=== PATIENT | female | born 1985 | race Asian ===

== ENCOUNTER 2016-05-31 03:50 | Emergency (ER) | payer MEDICAID, OTHER ==
[~2016-05-31] VITALS: Ht 154.9 cm; Wt 82.0 kg
[~2016-05-31 03:50] MED LIST: METF500T4 PO; ZIPR40CA2 PO
[2016-05-31 04:06] LABS: GLUCOSE,POINT OF CARE 159 MG/DL (70-110)
[2016-05-31 04:28] LABS: BASOPHILS % (AUTO) 0.2 % (0.0-2.0); EOSINOPHILS % (AUTO) 2.1 % (1.0-6.0); HEMATOCRIT 38.6 % (36-46); HEMOGLOBIN 12.5 g/dL (12.0-16.0); LYMPHOCYTES # (AUTO) 1.8 K/uL (1.0-4.8); LYMPHOCYTES % (AUTO) 14.7 % (22.0-44.0); MEAN CORPUSCULAR HEMOGLOBIN 30.1 pg (26.0-34.0); MEAN CORPUSCULAR HGB CONC 32.4 G/dL (31.0-37.0); MEAN CORPUSCULAR VOLUME 93 fL (80-100); MONOCYTES # (AUTO) 0.9 K/uL (0.1-1.0); MONOCYTES % (AUTO) 7.4 % (2.0-9.0); NEUTROPHILS # (AUTO) 9.5 K/uL (1.8-7.7); NEUTROPHILS % (AUTO) 75.6 % (40.0-70.0); PLATELET COUNT (AUTO) 372 K/uL (150-450); RED BLOOD CELL COUNT(AUTO) 4.15 MIL/uL (4.00-5.20); WHITE BLOOD COUNT (AUTO) 12.6 K/uL (4.5-11.0)
[2016-05-31 04:42] LABS: ALANINE AMINOTRANSFERASE 51 U/L (12-78); ALBUMIN 4.2 g/dL (3.4-5.0); ANION GAP 12 mmol/L (8-16); ASPARTATE AMINOTRANSFERASE 28 U/L (15-37); BILIRUBIN,TOTAL 0.4 mg/dL (0.1-1.0); CALCIUM, TOTAL 9.1 mg/dL (8.8-10.5); CARBON DIOXIDE 24 mmol/L (22-29); CHLORIDE 100 mmol/L (98-107); CREATININE 0.86 mg/dL (0.60-1.30); GLOMERULAR FILTR. RATE CALC > 60 mL/min (>60); POTASSIUM 3.8 mmol/L (3.5-5.1); SODIUM SERUM 136 mmol/L (136-145); TOTAL PROTEIN, SERUM 8.1 g/dL (6.4-8.2)
[2016-05-31] MEDS ORDERED: HALOPERIDOL 5 MG TABLET PO ONE (04:45)
[2016-05-31] MEDS ORDERED: LORazepam 2 MG TABLET PO ONE (04:45)
[2016-05-31 04:54] LABS: UREA NITROGEN, BLOOD 9 mg/dL (7-18)
[2016-05-31 05:43] VITALS: BP 144/83
== END 2016-05-31 05:50 | disposition home or self-care (01) ==
LOC: EMS 03:50
DX: F25.9 Schizoaffective disorder, unspecified (principal); R45.851 Suicidal ideations; E11.9 Type 2 diabetes mellitus without complications; F17.210 Nicotine dependence, cigarettes, uncomplicated
CPT/HCPCS: 36415; 80053; 82962; 85025; 99285; 99406; G0480

== ENCOUNTER 2016-07-11 11:13 | Inpatient (IN) | payer MEDICAID, OTHER ==
[~2016-07-11] VITALS: Ht 154.9 cm; Wt 78.9 kg
[2016-07-11] MEDS ORDERED: QUET100T PO (11:22)
[2016-07-11] MEDS ORDERED: CHLO10 PO (11:22)
[2016-07-11 11:26] LABS: GLUCOSE,POINT OF CARE 127 MG/DL (70-110)
[2016-07-11 12:01] LABS: BASOPHILS # (AUTO) 0.04 K/uL (0.00-0.20); BASOPHILS % (AUTO) 0.4 % (0.0-2.0); EOSINOPHILS # (AUTO) 0.13 K/uL (0.00-0.70); HEMOGLOBIN 13.3 g/dL (12.0-16.0); LYMPHOCYTES # (AUTO) 2.5 K/uL (1.0-4.8); LYMPHOCYTES % (AUTO) 25.2 % (22.0-44.0); MEAN CORPUSCULAR HEMOGLOBIN 30.6 pg (26.0-34.0); MEAN CORPUSCULAR HGB CONC 33.2 G/dL (31.0-37.0); MEAN CORPUSCULAR VOLUME 92 fL (80-100); MONOCYTES % (AUTO) 9.6 % (2.0-9.0); NEUTROPHILS # (AUTO) 6.3 K/uL (1.8-7.7); NEUTROPHILS % (AUTO) 63.6 % (40.0-70.0); PLATELET COUNT (AUTO) 342 K/uL (150-450); RED BLOOD CELL COUNT(AUTO) 4.35 MIL/uL (4.00-5.20); RED CELL DISTRIBUTION WIDTH 12.8 % (11.5-14.5); WHITE BLOOD COUNT (AUTO) 9.9 K/uL (4.5-11.0)
[2016-07-11 12:12] LABS: ANION GAP 7 mmol/L (8-16); CALCIUM, TOTAL 8.9 mg/dL (8.8-10.5); CARBON DIOXIDE 27 mmol/L (22-29); CHLORIDE 103 mmol/L (98-107); CREATININE 0.75 mg/dL (0.60-1.30); GLOMERULAR FILTR. RATE CALC > 60 mL/min (>60); POTASSIUM 3.9 mmol/L (3.5-5.1); SODIUM SERUM 137 mmol/L (136-145); UREA NITROGEN, BLOOD 12 mg/dL (7-18)
[2016-07-11 12:17] LABS: ALANINE AMINOTRANSFERASE 36 U/L (12-78); ALBUMIN 3.9 g/dL (3.4-5.0); ASPARTATE AMINOTRANSFERASE 17 U/L (15-37); BILIRUBIN,TOTAL 0.2 mg/dL (0.1-1.0); TOTAL PROTEIN, SERUM 7.8 g/dL (6.4-8.2)
[2016-07-11 17:54] VITALS: BP 129/91
[2016-07-11 18:57] LABS: GLUCOSE,POINT OF CARE 141 MG/DL (70-110)
[2016-07-11] MEDS ORDERED: ACETAMINOPHEN 325 MG TABLET PO PRN (22:00)
[2016-07-12 01:01] VITALS: BP 63/61
[2016-07-12 01:05] VITALS: BP 124/63
[2016-07-12] MEDS: LORazepam 2 MG TABLET PO PRN ×2 (01:08→07:06)
[2016-07-12] MEDS ORDERED: INFLUENZA VIRUS VACCINE QVS 2016-17 (3YR+)/PF 60 MCG/0.5 ML SYRINGE IM ONE (03:15)
[2016-07-12] MEDS ORDERED: -PHARMACY VACCINE NOTE- MISC ONE ×2 (03:15)
[2016-07-12 05:57] LABS: GLUCOSE,POINT OF CARE 114 MG/DL (70-110)
[2016-07-12 08:00] VITALS: BP 134/71
[2016-07-12] MEDS: BACITRACIN 28.4 GM OINTMENT TP SCH ×2 (13:19→17:01)
[2016-07-12 16:09] VITALS: BP 108/63
[2016-07-12] MEDS: RisperiDONE 3 MG TABLET PO SCH (17:00)
[2016-07-12] MEDS: MetFORMIN HCL 500 MG TABLET PO SCH (17:00)
[2016-07-12] MEDS: DIVALPROEX SODIUM 500 MG DR TABLET PO SCH (17:00)
[2016-07-13 03:08] VITALS: BP 128/76
[2016-07-13] MEDS: HALOPERIDOL 5 MG TABLET PO PRN ×2 (03:10→09:15)
[2016-07-13] MEDS: LORazepam 2 MG TABLET PO PRN ×2 (03:10→09:14)
[2016-07-13] MEDS: MetFORMIN HCL 500 MG TABLET PO SCH ×2 (06:50→16:51)
[2016-07-13 06:54] LABS: GLUCOSE,POINT OF CARE 197 MG/DL (70-110)
[2016-07-13 08:17] VITALS: BP 132/84
[2016-07-13] MEDS: BACITRACIN 28.4 GM OINTMENT TP SCH ×2 (09:00→16:51)
[2016-07-13] MEDS: RisperiDONE 3 MG TABLET PO SCH ×2 (09:14→16:51)
[2016-07-13] MEDS: DIVALPROEX SODIUM 500 MG DR TABLET PO SCH ×2 (09:15→16:51)
[2016-07-13 14:12] LABS: GLUCOSE COMMENT 1 Post Meal; GLUCOSE,POINT OF CARE 223 MG/DL (70-110)
[2016-07-13 16:27] VITALS: BP 135/76
[2016-07-13 16:47] LABS: GLUCOSE,POINT OF CARE 180 MG/DL (70-110)
[2016-07-14 00:01] VITALS: BP 128/80
[2016-07-14] MEDS: ZOLPIDEM TARTRATE 10 MG TABLET PO PRN (00:02)
[2016-07-14 06:12] LABS: GLUCOSE,POINT OF CARE 134 MG/DL (70-110)
[2016-07-14] MEDS: MetFORMIN HCL 500 MG TABLET PO SCH ×2 (06:38→16:19)
[2016-07-14 08:13] VITALS: BP 126/76
[2016-07-14] MEDS: BACITRACIN 28.4 GM OINTMENT TP SCH ×2 (09:21→16:21)
[2016-07-14] MEDS: DIVALPROEX SODIUM 500 MG DR TABLET PO SCH ×2 (09:22→16:19)
[2016-07-14] MEDS: RisperiDONE 3 MG TABLET PO SCH ×2 (09:22→16:19)
[2016-07-14] MEDS: LORazepam 2 MG TABLET PO PRN ×2 (09:46→16:19)
[2016-07-14 11:17] LABS: GLUCOSE,POINT OF CARE 99 MG/DL (70-110)
[2016-07-14 16:04] VITALS: BP 142/87
[2016-07-14 16:57] LABS: GLUCOSE,POINT OF CARE 113 MG/DL (70-110)
[2016-07-14 20:57] LABS: GLUCOSE,POINT OF CARE 126 MG/DL (70-110)
[2016-07-15 04:27] VITALS: BP 135/85
[2016-07-15 05:52] LABS: GLUCOSE COMMENT 1 Doctor Notified; GLUCOSE,POINT OF CARE 197 MG/DL (70-110)
[2016-07-15] MEDS: MetFORMIN HCL 500 MG TABLET PO SCH ×2 (06:30→17:11)
[2016-07-15] MEDS: DIVALPROEX SODIUM 500 MG DR TABLET PO SCH ×2 (08:44→17:11)
[2016-07-15] MEDS: RisperiDONE 3 MG TABLET PO SCH ×2 (08:44→17:11)
[2016-07-15] MEDS: BACITRACIN 28.4 GM OINTMENT TP SCH ×2 (08:46→17:11)
[2016-07-15 08:49] VITALS: BP 123/76
[2016-07-15 16:00] VITALS: BP 120/79
[2016-07-15 16:37] LABS: GLUCOSE,POINT OF CARE 131 MG/DL (70-110)
[2016-07-15 20:47] LABS: GLUCOSE,POINT OF CARE 112 MG/DL (70-110)
[2016-07-16] MEDS: LORazepam 2 MG TABLET PO PRN (00:02)
[2016-07-16] MEDS: ZOLPIDEM TARTRATE 10 MG TABLET PO PRN (00:02)
[2016-07-16 00:05] VITALS: BP 117/81
[2016-07-16 06:27] LABS: GLUCOSE,POINT OF CARE 122 MG/DL (70-110)
[2016-07-16] MEDS: MetFORMIN HCL 500 MG TABLET PO SCH (06:48)
[2016-07-16 08:13] VITALS: BP 106/61
[2016-07-16] MEDS: DIVALPROEX SODIUM 500 MG DR TABLET PO SCH (08:46)
[2016-07-16] MEDS: BACITRACIN 28.4 GM OINTMENT TP SCH (08:46)
[2016-07-16] MEDS: RisperiDONE 3 MG TABLET PO SCH (08:46)
[2016-07-16 11:12] LABS: GLUCOSE,POINT OF CARE 166 MG/DL (70-110)
[2016-07-16] MEDS ORDERED: RISP3 PO (11:27)
[2016-07-16] MEDS ORDERED: DIVA500T35 PO (11:27)
[2016-07-16] MEDS ORDERED: METF500T4 PO (11:28)
== END 2016-07-16 14:45 | disposition home or self-care (01) | DRG 750 ==
LOC: EEVIPCON 11:15 → EMS 11:15 → B2S 16:12
PROVIDERS: ADMIT Psychiatry & Neurology Psychiatry; ATTEND Psychiatry & Neurology Psychiatry
PROC: 3E0234Z Introduction of Serum, Toxoid and Vaccine into Muscle, Percutaneous Approach (ICD-10-PCS; principal; 2016-07-12)
DX: F25.9 Schizoaffective disorder, unspecified (principal); E11.9 Type 2 diabetes mellitus without complications; F32.9 Major depressive disorder, single episode, unspecified; F17.200 Nicotine dependence, unspecified, uncomplicated; F10.10 Alcohol abuse, uncomplicated; Z23 Encounter for immunization
CPT/HCPCS: 82962; 90471; 99285; G0480

== ENCOUNTER 2022-04-18 04:24 | Inpatient (IN) | payer MEDICAID ==
[~2022-04-18] VITALS: Ht 154.9 cm; Wt 69.4 kg
[~2022-04-18 04:24] MED LIST changes: +DIVA-112 PO; +METF-1211 PO; -METF500T4 PO; +RISP3TAB35 PO; -ZIPR40CA2 PO
[2022-04-18] MEDS ORDERED: ChlorproMAZINE HCL 100 MG TABLET PO ONE ×2 (05:00→05:30)
[2022-04-18] MEDS ORDERED: LORazepam 2 MG TABLET PO ONE (05:30)
[2022-04-18 05:39] LABS: COVID AG,FIA SOURCE NASAL SWAB
[2022-04-18 07:29] LABS: BASOPHILS % (AUTO) 0.5 % (0.0-2.0); HEMATOCRIT 41.4 % (36-46); HEMOGLOBIN 13.3 g/dL (12.0-16.0); LYMPHOCYTES % (AUTO) 25.6 % (22.0-44.0); MEAN CORPUSCULAR HEMOGLOBIN 29.7 pg (26.0-34.0); MEAN CORPUSCULAR HGB CONC 32.2 G/dL (31.0-37.0); MEAN CORPUSCULAR VOLUME 92 fL (80-100); MONOCYTES # (AUTO) 0.7 K/uL (0.1-1.0); MONOCYTES % (AUTO) 8.6 % (2.0-9.0); NEUTROPHILS # (AUTO) 5.1 K/uL (1.8-7.7); NEUTROPHILS % (AUTO) 64.3 % (40.0-70.0); PLATELET COUNT (AUTO) 382 K/uL (150-450); RED BLOOD CELL COUNT(AUTO) 4.49 MIL/uL (4.00-5.20); RED CELL DISTRIBUTION WIDTH 12.7 % (11.5-14.5)
[2022-04-18 07:33] LABS: ANION GAP 6 mmol/L (8-16); CALCIUM, TOTAL 9.7 mg/dL (8.8-10.5); CARBON DIOXIDE 26 mmol/L (22-29); CHLORIDE 100 mmol/L (98-107); CREATININE 0.77 mg/dL (0.60-1.30); GLOMERULAR FILTR. RATE CALC > 60 mL/min (>60); GLUCOSE,RANDOM 285 mg/dL (70-110); POTASSIUM 3.9 mmol/L (3.5-5.1); SODIUM SERUM 132 mmol/L (136-145); UREA NITROGEN, BLOOD 9 mg/dL (7-18)
[2022-04-18 07:39] LABS: ALANINE AMINOTRANSFERASE 31 U/L (12-78); ALKALINE PHOSPHATASE 73 U/L (46-116); ASPARTATE AMINOTRANSFERASE < 5 U/L (15-37); BILIRUBIN,TOTAL 0.3 mg/dL (0.1-1.0); TOTAL PROTEIN, SERUM 8.1 g/dL (6.4-8.2)
[2022-04-18] MEDS ORDERED: PNEUMOCOCCAL VACCINE POLYVALENT 0.5 ML VIAL [PPSV23] IM. ONE (14:45)
[2022-04-18] MEDS ORDERED: INFLUENZA VIRUS VACCINE QVS 2022-23 (6MO+)/PF 60 MCG/0.5 ML SYRINGE IM. ONE (14:45)
[2022-04-18 16:50] LABS: GLUCOMETER DEV NAME(LOC) BV2S.; GLUCOSE,POINT OF CARE 272 MG/DL (70-110)
[2022-04-18] MEDS: MetFORMIN HCL 500 MG TABLET PO SCH (17:00)
[2022-04-18 20:10] VITALS: BP 135/87
[2022-04-19 06:31] LABS: GLUCOMETER DEV NAME(LOC) BV2S.; GLUCOSE,POINT OF CARE 177 MG/DL (70-110)
[2022-04-19] MEDS: MetFORMIN HCL 500 MG TABLET PO SCH ×2 (06:42→16:33)
[2022-04-19] MEDS ORDERED: MAG HYDROX/AL HYDROX/SIMETH ES 30 ML SUSPENSION UDCUP PO PRN (07:00)
[2022-04-19] MEDS ORDERED: BENZOCAINE/MENTHOL LOZENGE PO PRN (07:00)
[2022-04-19] MEDS ORDERED: BACITRACIN 28 GM OINTMENT TP PRN (07:00)
[2022-04-19] MEDS ORDERED: ALBUTEROL SULFATE HFA 90 MCG/PUFF 8 GM INHALER IH PRN (07:00)
[2022-04-19] MEDS ORDERED: OMEPRAZOLE 20 MG CAPSULE PO PRN (07:00)
[2022-04-19] MEDS ORDERED: ONDANSETRON HCL 4 MG TABLET PO PRN (07:00)
[2022-04-19] MEDS ORDERED: DOCUSATE SODIUM 100 MG CAPSULE PO PRN (07:00)
[2022-04-19] MEDS ORDERED: PETROLATUM,WHITE 28 GM JELLY TP PRN (07:00)
[2022-04-19] MEDS ORDERED: LOPERAMIDE HCL 2 MG CAPSULE PO PRN (07:00)
[2022-04-19] MEDS ORDERED: MAGNESIUM HYDROXIDE SUSPENSION 30 ML UDCUP PO PRN (07:00)
[2022-04-19] MEDS ORDERED: ACETAMINOPHEN 325 MG TABLET PO PRN (07:00)
[2022-04-19] MEDS ORDERED: CloNIDine HCL 0.1 MG TABLET PO PRN (07:00)
[2022-04-19] MEDS ORDERED: IBUPROFEN 600 MG TABLET PO PRN (07:00)
[2022-04-19 09:35] VITALS: BP 130/88
[2022-04-19] MEDS: LORazepam 2 MG TABLET PO PRN (09:38)
[2022-04-19 16:31] LABS: GLUCOMETER DEV NAME(LOC) BV2S.; GLUCOSE,POINT OF CARE 273 MG/DL (70-110)
[2022-04-19] MEDS ORDERED: DEXTROSE 50%-WATER 25 GM/50 ML SYRINGE IVP PRN (19:15)
[2022-04-19 20:20] VITALS: BP 116/60
[2022-04-19] MEDS: INSULIN LISPRO 100 UNITS/ML SQ PRN (22:39)
[2022-04-19 22:51] LABS: GLUCOMETER DEV NAME(LOC) BV2S.; GLUCOSE,POINT OF CARE 170 MG/DL (70-110)
[2022-04-20 05:05] LABS: GLUCOMETER DEV NAME(LOC) BV2S.; GLUCOSE,POINT OF CARE 191 MG/DL (70-110)
[2022-04-20] MEDS: MetFORMIN HCL 500 MG TABLET PO SCH ×2 (06:36→16:34)
[2022-04-20] MEDS: INSULIN LISPRO 100 UNITS/ML SQ PRN ×4 (06:38→20:40)
[2022-04-20 07:35] LABS: BASOPHILS % (AUTO) 0.7 % (0.0-2.0); HEMATOCRIT 41.3 % (36-46); HEMOGLOBIN 13.3 g/dL (12.0-16.0); LYMPHOCYTES # (AUTO) 2.8 K/uL (1.0-4.8); LYMPHOCYTES % (AUTO) 33.6 % (22.0-44.0); MEAN CORPUSCULAR HGB CONC 32.2 G/dL (31.0-37.0); MEAN CORPUSCULAR VOLUME 93 fL (80-100); MONOCYTES # (AUTO) 0.6 K/uL (0.1-1.0); MONOCYTES % (AUTO) 7.7 % (2.0-9.0); NEUTROPHILS # (AUTO) 4.8 K/uL (1.8-7.7); PLATELET COUNT (AUTO) 419 K/uL (150-450); RED BLOOD CELL COUNT(AUTO) 4.44 MIL/uL (4.00-5.20); RED CELL DISTRIBUTION WIDTH 12.2 % (11.5-14.5)
[2022-04-20 07:43] LABS: HEMOGLOBIN A1C 9.3 % (3.8-5.6)
[2022-04-20 07:55] LABS: ALANINE AMINOTRANSFERASE 31 U/L (12-78); ALBUMIN 3.9 g/dL (3.4-5.0); ALKALINE PHOSPHATASE 70 U/L (46-116); ANION GAP 8 mmol/L (8-16); ASPARTATE AMINOTRANSFERASE 16 U/L (15-37); BILIRUBIN,TOTAL 0.3 mg/dL (0.1-1.0); CALCIUM, TOTAL 9.4 mg/dL (8.8-10.5); CARBON DIOXIDE 25 mmol/L (22-29); CHLORIDE 102 mmol/L (98-107); CHOL/HDL RATIO 3.2 (3.9-5.7); CHOLESTEROL 153 mg/dL (131-200); CREATININE 0.79 mg/dL (0.60-1.30); FREE T4 (FREE THYROXINE) 1.52 ng/dL (0.76-1.46); GLUCOSE,RANDOM 184 mg/dL (70-110); HDL CHOLESTEROL 48 mg/dL (40-60); LDL CHOL (CALC.) 83 mg/dL (0-130); POTASSIUM 4.1 mmol/L (3.5-5.1); SODIUM SERUM 135 mmol/L (136-145); THYROID STIMULATING HORMONE 0.57 uIU/mL (0.36-3.74); TOTAL PROTEIN, SERUM 8.1 g/dL (6.4-8.2); TRIGLYCERIDES 108 mg/dL (15-150); UREA NITROGEN, BLOOD 12 mg/dL (7-18)
[2022-04-20 07:56] LABS: GLOMERULAR FILTR. RATE CALC > 60 mL/min (>60)
[2022-04-20 08:33] VITALS: BP 123/86
[2022-04-20] MEDS: HALOPERIDOL 5 MG TABLET PO PRN (09:00)
[2022-04-20] MEDS: LORazepam 2 MG TABLET PO PRN ×2 (09:00→18:23)
[2022-04-20 15:56] LABS: GLUCOMETER DEV NAME(LOC) BV2S.; GLUCOSE,POINT OF CARE 184 MG/DL (70-110)
[2022-04-20] MEDS: DIVALPROEX SODIUM 500 MG DR TABLET PO SCH (16:34)
[2022-04-20] MEDS: RisperiDONE 3 MG TABLET PO SCH (16:34)
[2022-04-20 16:41] LABS: GLUCOMETER DEV NAME(LOC) BV2S.; GLUCOSE,POINT OF CARE 186 MG/DL (70-110)
[2022-04-20] MEDS ORDERED: HALOPERIDOL LACTATE 5 MG/ML VIAL IM ONE (19:30)
[2022-04-20] MEDS ORDERED: LORazepam 2 MG/ML VIAL IM ONE (19:30)
[2022-04-20 20:16] LABS: GLUCOMETER DEV NAME(LOC) BV2S.; GLUCOSE,POINT OF CARE 169 MG/DL (70-110)
[2022-04-20 20:17] VITALS: BP 122/84
[2022-04-20] MEDS ORDERED: GLUCAGON,HUMAN RECOMBINANT 1 MG VIAL IM PRN (21:15)
[2022-04-21] MEDS: MetFORMIN HCL 500 MG TABLET PO SCH ×2 (06:58→16:47)
[2022-04-21 08:00] LABS: AMPHET/METH SCREEN,URINE POSITIVE (NEGATIVE); BARBITURATE SCREEN, URINE NEGATIVE (NEGATIVE); BENZODIAZEPINES SCREEN,URINE NEGATIVE (NEGATIVE); CANNABINOID SCREEN,URINE NEGATIVE (NEGATIVE); COCAINE SCREEN,URINE NEGATIVE (NEGATIVE); METHADONE SCREEN, URINE NEGATIVE (NEGATIVE); OPIATE SCREEN,URINE NEGATIVE (NEGATIVE); PHENCYCLIDINE SCREEN,URINE NEGATIVE (NEGATIVE)
[2022-04-21 08:26] VITALS: BP 130/73
[2022-04-21] MEDS: RisperiDONE 3 MG TABLET PO SCH ×2 (08:39→16:47)
[2022-04-21] MEDS: DIVALPROEX SODIUM 500 MG DR TABLET PO SCH ×2 (08:39→16:47)
[2022-04-21] MEDS: INSULIN REGULAR, HUMAN 100 UNITS/ML SQ PRN ×3 (11:33→21:12)
[2022-04-21] MEDS: LORazepam 2 MG TABLET PO PRN (11:58)
[2022-04-21] MEDS ORDERED: HALOPERIDOL LACTATE 5 MG/ML VIAL IM ONE (12:30)
[2022-04-21] MEDS ORDERED: LORazepam 2 MG/ML VIAL IM ONE (12:30)
[2022-04-21] MEDS ORDERED: DiphenhydrAMINE HCL 50 MG/ML VIAL IM ONE (12:30)
[2022-04-21 13:00] LABS: GLUCOMETER DEV NAME(LOC) BV2S.; GLUCOSE,POINT OF CARE 208 MG/DL (70-110)
[2022-04-21 16:17] LABS: GLUCOMETER DEV NAME(LOC) BV2S.; GLUCOSE,POINT OF CARE 194 MG/DL (70-110)
[2022-04-21 20:00] VITALS: BP 128/80
[2022-04-22] MEDS: LORazepam 2 MG TABLET PO PRN ×3 (04:40→20:56)
[2022-04-22 05:56] LABS: GLUCOMETER DEV NAME(LOC) BV2S.; GLUCOSE,POINT OF CARE 170 MG/DL (70-110)
[2022-04-22] MEDS: INSULIN LISPRO 100 UNITS/ML SQ PRN ×4 (07:03→22:19)
[2022-04-22] MEDS: MetFORMIN HCL 500 MG TABLET PO SCH ×2 (07:03→16:48)
[2022-04-22 08:14] VITALS: BP 131/95
[2022-04-22] MEDS: DIVALPROEX SODIUM 500 MG DR TABLET PO SCH ×2 (08:56→16:48)
[2022-04-22] MEDS: RisperiDONE 3 MG TABLET PO SCH ×2 (08:56→16:48)
[2022-04-22] MEDS: HALOPERIDOL 5 MG TABLET PO PRN (10:37)
[2022-04-22 11:36] LABS: GLUCOMETER DEV NAME(LOC) BV2S.; GLUCOSE,POINT OF CARE 118 MG/DL (70-110)
[2022-04-22 16:41] LABS: GLUCOMETER DEV NAME(LOC) BV2S.; GLUCOSE,POINT OF CARE 201 MG/DL (70-110)
[2022-04-22 20:16] VITALS: BP 148/85
[2022-04-22 21:06] LABS: GLUCOMETER DEV NAME(LOC) BV2S.; GLUCOSE,POINT OF CARE 130 MG/DL (70-110)
[2022-04-22] MEDS: ZOLPIDEM TARTRATE 10 MG TABLET PO PRN (21:44)
[2022-04-23 05:46] LABS: GLUCOMETER DEV NAME(LOC) POC.BV
[2022-04-23 06:21] LABS: GLUCOMETER DEV NAME(LOC) BV2S.; GLUCOSE,POINT OF CARE 130 MG/DL (70-110)
[2022-04-23] MEDS: MetFORMIN HCL 500 MG TABLET PO SCH ×2 (06:54→17:08)
[2022-04-23] MEDS: INSULIN LISPRO 100 UNITS/ML SQ PRN ×4 (06:58→21:28)
[2022-04-23 08:20] VITALS: BP 131/93
[2022-04-23] MEDS: DIVALPROEX SODIUM 500 MG DR TABLET PO SCH ×2 (08:23→17:08)
[2022-04-23] MEDS: RisperiDONE 3 MG TABLET PO SCH ×2 (08:23→17:07)
[2022-04-23 11:26] LABS: GLUCOMETER DEV NAME(LOC) BV2S.; GLUCOSE,POINT OF CARE 197 MG/DL (70-110)
[2022-04-23] MEDS: LORazepam 2 MG TABLET PO PRN (12:54)
[2022-04-23] MEDS: HALOPERIDOL 5 MG TABLET PO PRN (12:54)
[2022-04-23 16:51] LABS: GLUCOMETER DEV NAME(LOC) BV2S.; GLUCOSE,POINT OF CARE 192 MG/DL (70-110)
[2022-04-23 20:21] VITALS: BP 146/84
[2022-04-23 21:26] LABS: GLUCOMETER DEV NAME(LOC) BV2S.; GLUCOSE,POINT OF CARE 156 MG/DL (70-110)
[2022-04-24 05:47] LABS: GLUCOMETER DEV NAME(LOC) BV2S.; GLUCOSE,POINT OF CARE 138 MG/DL (70-110)
[2022-04-24] MEDS: MetFORMIN HCL 500 MG TABLET PO SCH ×2 (06:38→16:50)
[2022-04-24] MEDS: INSULIN LISPRO 100 UNITS/ML SQ PRN ×4 (06:40→20:13)
[2022-04-24] MEDS: RisperiDONE 3 MG TABLET PO SCH ×2 (08:05→16:50)
[2022-04-24] MEDS: LORazepam 2 MG TABLET PO PRN (08:05)
[2022-04-24] MEDS: DIVALPROEX SODIUM 500 MG DR TABLET PO SCH ×2 (08:05→16:50)
[2022-04-24 09:10] VITALS: BP 127/75
[2022-04-24 13:06] LABS: GLUCOMETER DEV NAME(LOC) BV2X.2; GLUCOSE,POINT OF CARE 157 MG/DL (70-110)
[2022-04-24 17:32] LABS: GLUCOMETER DEV NAME(LOC) BV2X.2; GLUCOSE,POINT OF CARE 180 MG/DL (70-110)
[2022-04-24] MEDS: ZOLPIDEM TARTRATE 10 MG TABLET PO PRN (20:11)
[2022-04-24 20:24] VITALS: BP 119/80
[2022-04-24 20:26] LABS: GLUCOMETER DEV NAME(LOC) BV2S.; GLUCOSE,POINT OF CARE 125 MG/DL (70-110)
[2022-04-25] MEDS: MetFORMIN HCL 500 MG TABLET PO SCH (06:39)
[2022-04-25] MEDS: INSULIN LISPRO 100 UNITS/ML SQ PRN (06:41)
[2022-04-25 07:21] LABS: GLUCOMETER DEV NAME(LOC) BV2S.; GLUCOSE,POINT OF CARE 127 MG/DL (70-110)
[2022-04-25] MEDS: RisperiDONE 3 MG TABLET PO SCH (08:02)
[2022-04-25] MEDS: LORazepam 2 MG TABLET PO PRN (08:02)
[2022-04-25] MEDS: DIVALPROEX SODIUM 500 MG DR TABLET PO SCH (08:02)
[2022-04-25 08:13] VITALS: BP 132/82
[2022-04-25 08:15] LABS: GLUCOMETER DEV NAME(LOC) POC.BV
== END 2022-04-26 00:25 | disposition left against medical advice (07) | DRG 750 ==
LOC: EMS 04:25 → B2S 11:58
PROVIDERS: ADMIT Psychiatry & Neurology Psychiatry; ATTEND Psychiatry & Neurology Psychiatry
DX: F25.9 Schizoaffective disorder, unspecified (principal); E87.1 Hypo-osmolality and hyponatremia; R45.851 Suicidal ideations; E11.9 Type 2 diabetes mellitus without complications; F32.A Depression, unspecified; G47.00 Insomnia, unspecified; K59.00 Constipation, unspecified; Z20.822 Contact with and (suspected) exposure to COVID-19; Z87.891 Personal history of nicotine dependence; Z79.899 Other long term (current) drug therapy
CPT/HCPCS: 80053; 80061; 80307; 82962; 83036; 84439; 84443; 84703; 85025; 99285; G0480; J1200; J1630; J2060

== ENCOUNTER 2022-05-03 19:54 | Emergency (ER) | payer MEDICAID ==
[~2022-05-03] VITALS: Ht 162.6 cm; Wt 68.6 kg
[2022-05-03 20:00] VITALS: BP 135/77
[2022-05-03] MEDS ORDERED: ACETAMINOPHEN 500 MG TABLET PO ONE (20:30)
== END 2022-05-03 21:40 | disposition home or self-care (01) ==
LOC: EMS 19:55
DX: M79.672 Pain in left foot (principal); M79.671 Pain in right foot; E11.9 Type 2 diabetes mellitus without complications; F20.9 Schizophrenia, unspecified; F17.210 Nicotine dependence, cigarettes, uncomplicated; F15.90 Other stimulant use, unspecified, uncomplicated
CPT/HCPCS: 82962; 99282